=== PATIENT | female | born 1935 | race Caucasian/White ===

== ENCOUNTER 2017-02-13 06:28 | Emergency (ER) | payer MEDICARE ==
[2017-02-13] MEDS ORDERED: MORPHINE SULFATE 5 MG/ML PFS IVP ONE (06:59)
--- NOTE | 2017-02-13 07:07 | Emergency Department Record ---
History of Present Illness - General Chief complaint: Pain Stated complaint: RT HIP PAIN RADIATES DOWN LEG Time Seen by Provider: 02/13/17 06:58 Source: Patient Mode of Arrival: Ambulatory Limitations: No limitations - History of Present Illness Initial comments: 81 yo female presents with right hip pain since Friday. She denies any injury or fall. The pain radiates down the leg. No weakness or numbness. No rash. The pain is sharp. It is better with rest. It is worse with walking or prolonged standing. No history of hip surgery. She saw Dr Najera who advised her to take Ibuprofen. MD Complaint: Extremity pain, Joint pain Onset/Timin -: Days(s) Location: Right, Knee, Thigh, Other History of Same: Yes Radiation: Distal Severity scale (1-10): 5 Quality: Other Consistency: Constant Improves with: Nothing Worsens with: Nothing Associated Symptoms: Denies other symptoms - Related Data Home Medications Medication Instructions Recorded Confirmed Last Taken Lisinopril 12.5 mg PO DAILY 02/13/17 02/13/17 Unknown Previous Rx's Medication Instructions Recorded Methylprednisolone [Medrol Dose 0 mg PO DAILY #1 tab.ds.pk 02/13/17 Pack] Allergies Allergy/AdvReac Type Severity Reaction Status Date / Time No Known Drug Allergies Allergy Verified 02/13/17 06:43 Travel Screening - Travel/Exposure Within Last 30 Days Have you traveled within the last 30 days?: No - Travel/Exposure Within Last Year Have you traveled outside the [place] in the last year?: No - Additonal Travel Details Have you been exposed to anyone with a communicable illness?: No - Travel Symptoms Symptom Screening: None Review of Systems Constitutional: Denies: Chills, Fever, Weakness Eyes: Denies: Eye discharge, Eye pain ENT: Denies: Congestion, Throat pain Respiratory: Denies: Cough, Wheezes Cardiovascular: Denies: Chest pain Endocrine: Denies: Fatigue Gastrointestinal: Denies: Abdominal pain, Diarrhea, Nausea, Vomiting Genitourinary: Denies: Dysuria, Urgency Musculoskeletal: Reports: Arthralgia, Back pain, Myalgia. Denies: Joint swelling, Neck pain Skin: Denies: Change in color, Rash Neurological: Denies: Headache, Numbness Psychiatric: Denies: Anxiety Hematological/Lymphatic: Denies: Blood Clots, Swollen glands Past Medical History - SOCIAL HISTORY Smoking Status: Never smoker Alcohol Use: None Drug Use: None - RESPIRATORY Hx Respiratory Disorders: Yes Hx Sleep Apnea: Yes Hx of CPAP: No - CARDIOVASCULAR Hx Cardio Disorders: Yes Comment:: high cholesterol - NEURO Hx Neuro Disorders: No - GI Hx GI Disorders: Yes Hx Abdominal Pain: Yes Hx Reflux: Yes Hx Nausea/Vomiting: Yes - Hx Genitourinary Disorders: Yes Hx Bladder Problem: Yes (frequency) Comment:: some urinary incontinence - ENDOCRINE Hx Endocrine Disorders: No - MUSCULOSKELETAL Hx Musculoskeletal Disorders: Yes Hx Arthritis: Yes (fingers) - PSYCH Hx Psych Problems: No - HEMATOLOGY/ONCOLOGY Hx Hematology/Oncology Disorders: No Family Medical History Any Significant Family History?: No Physical Exam - General General Appearance: Alert, Oriented x3, Cooperative, No acute distress Limitations: No limitations - Head Head exam: Atraumatic, Normal inspection - Eye Eye exam: Normal appearance - ENT ENT exam: Normal exam Ear exam: Normal external inspection Nasal Exam: Normal inspection Mouth exam: Normal external inspection - Neck Neck exam: Normal inspection - Respiratory Respiratory exam: Normal lung sounds bilaterally. negative: Respiratory distress - Cardiovascular Cardiovascular Exam: Regular rate, Normal rhythm, Normal heart sounds Peripheral Pulses: 2+: Dorsalis Pedis (R), Dorsalis Pedis (L) - GI/Abdominal GI/Abdominal exam: Soft. negative: Distended, Guarding, Pulsatile mass, Rebound , Tenderness - Rectal Rectal exam: Deferred - exam: Deferred - Extremities Extremities exam: Normal inspection, Full ROM, Normal capillary refill, Tenderness, Other (Mild lateral hip tenderness, some hip pain with SLT hip flexion, no weakness with intact foot flexion and extension). negative: Calf tenderness, Joint swelling - Back Back exam: Reports: Normal inspection, Full ROM, Paraspinal tenderness (deep low lumbar), Vertebral tenderness. Denies: CVA tenderness (R), CVA tenderness ( L), Muscle spasm, Rash noted, Tenderness - Neurological Neurological exam: Alert, Normal gait (smooth gait without limitation or need of assistance), Oriented X3, Reflexes normal (patellar symmetric and intact). negative: Abnormal gait, Altered, Motor sensory deficit - Psychiatric Psychiatric exam: Normal affect, Normal mood. negative: Agitated, Anxious - Skin Skin exam: Dry, Intact, Normal color, Warm Course Vital Signs 02/13/17 06:32 Temperature 98.0 F Pulse Rate 73 Respiratory 20 Rate Blood Pressure 155/86 Pulse Ox 96 - Reevaluation(s) Reevaluation #1: The patient states the pain is controlled and declined Morphine We discussed the XR results of the negative R hip and degenerative changes in the lumbar spine This likely represents mild sciatica symptoms with pain radiating down the right leg. No swelling and very strong pulses are present distally. She will be placed on a Medrol dose pack and recommended follow up with PCP She may need MRI if not improving 02/13/17 08:03 Disposition Disposition: Discharge Clinical Impression: Hip pain, right Disposition: Home, Self-Care Condition: (1) Good Instructions: Pain Management in the Elderly (ED), Sciatica (ED) Additional Instructions: Call your doctor for follow up of the ER Return if worse, uncontrolled pain, any weakness or swelling or new concerns Prescriptions: Methylprednisolone [Medrol Dose Pack] 0 mg PO DAILY #1 tab.ds.pk Forms: Patient Portal Access Time of Disposition: 08:06
[2017-02-13] MEDS: METHYLPREDNISOLONE PF 125MG/VIAL IVP ONE (07:11)
--- NOTE | 2017-02-14 07:52 | RADIOLOGY REPORT ---
EXAM: RIGHT HIP HISTORY: PAIN. TECHNIQUE: A single AP view of the pelvis and AP and frog leg views of the right hip were performed. FINDINGS: No evidence of fracture or dislocation. No lytic or blastic lesion. IMPRESSION: NEGATIVE AP PELVIS AND RIGHT HIP EXAMINATION. JOB NUMBER: [id number] MTDD
--- NOTE | 2017-02-14 07:54 | RADIOLOGY REPORT ---
EXAM: LUMBAR SPINE HISTORY: PAIN. TECHNIQUE: AP, lateral and oblique views of the lumbar spine were performed. FINDINGS: There is osteopenia. There is facet arthropathy at L4-L5 and L5-S1 levels. No compression fracture deformity. There is atheromatous change of the abdominal vasculature. The sacroiliac joints appear normal. IMPRESSION: 1. FACET ARTHROPATHY AT L4-L5 AND L5-S1 LEVELS. 2. UNDERLYING OSTEOPENIA. JOB NUMBER: [id number] MTDD
== END 2017-02-13 08:18 | disposition home or self-care (01) ==
LOC: ER 06:28
DX: M25.551 Pain in right hip (principal); M25.561 Pain in right knee; M79.651 Pain in right thigh; M54.5 Low back pain
CPT/HCPCS: 72100; 96374; 99284; J2930